=== PATIENT | male | born 2000 | race Caucasian/White ===

== ENCOUNTER 2019-06-13 12:25 | Emergency (ER) | payer BC, OTHER ==
[~2019-06-13] VITALS: Ht 182.9 cm; Wt 72.6 kg
--- NOTE | 2019-06-13 12:44 | ED Pediatric Illness ---
HPI-Pediatric Illness General Chief Complaint: Abdominal/GI Problems Stated Complaint: BLOOD IN STOOL/DRANK ALCOHOL AND ON STEROIDS Source: patient Exam Limitations: no limitations History of Present Illness Date Seen by Provider: Jun 13, 2019 Time Seen by Provider: 12:41 Initial Comments To ER with reports of bright red blood in his stool this morning. This was soft non-painful bowel movement. He's never had this before. He only had the one episode. Denies abdominal pain nausea or vomiting. He is concerned because he uses testosterone injections and "dianabol" oral steroid in an effort to "double". He purchases these online from a warehouse in [employer]. He is also concerned because he drinks alcohol several times a week but not daily, smokes marijuana daily and smokes a joule cigarette daily. He is worried about the effects of the substances on his liver. 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. Timing/Duration: 4-6 hours Severity: moderate Presenting Symptoms: No fever, No runny nose, No trouble breathing, No persistent cough, No sore throat, No painful swallowing; bloody stools (times one today); No diarrhea, No abdominal pain, No vomiting, No skin rash Allergies and Home Medications Patient Home Medication List Home Medication List Reviewed: Yes Review of Systems Review of Systems Constitutional: see HPI EENTM: see HPI Respiratory: no symptoms reported Cardiovascular: no symptoms reported Gastrointestinal: No abdominal pain, No melena, No nausea, No vomiting Genitourinary: no symptoms reported Musculoskeletal: no symptoms reported Skin: no symptoms reported Psychiatric/Neurological: No Symptoms Reported Endocrine: No Symptoms Reported Hematologic/Lymphatic: No Symptoms Reported PMH-Pediatrics Recent Foreign Travel: No Contact w/other who traveled: No Physical Exam-Pediatric Physical Exam Vital Signs - First Documented 06/13/19 12:34 Temp 97.8 Pulse 96 Resp 18 B/P (MAP) 156/102 Capillary Refill : Height, Weight, BMI Height: '" Weight: lbs. oz. kg; BMI Method: General Appearance: no acute distress, see HPI, active HENT: head inspection normal, fontanelle closed/normal, PERRL, TMs normal Neck: non-tender, full range of motion; No lymphadenopathy (R), No lymphadenopathy (L) Respiratory: lungs clear, normal breath sounds, no respiratory distress, no accessory muscle use Cardiovascular: regular rate, rhythm, no murmur Gastrointestinal: normal bowel sounds, non tender, soft; No hepatomegaly, No spleenomegaly Extremities: normal range of motion, non-tender Neurologic/Psychiatric: alert, normal mood/affect, oriented x 3 Skin: normal color, warm/dry Progress/Results/Core Measures Results/Orders Lab Results Laboratory Tests Test 06/13/19 12:31 Range/Units White Blood Count 4.1 L 4.3-11.0 10^3/uL Red Blood Count 5.29 4.35-5.85 10^6/uL Hemoglobin 15.8 13.3-17.7 G/DL Hematocrit 47 40-54 % Mean Corpuscular Volume 89 80-99 FL Mean Corpuscular Hemoglobin 30 25-34 PG Mean Corpuscular Hemoglobin Concent 33 32-36 G/DL Red Cell Distribution Width 13.1 10.0-14.5 % Platelet Count 330 130-400 10^3/uL Mean Platelet Volume 8.7 7.4-10.4 FL Neutrophils (%) (Auto) 42 42-75 % Lymphocytes (%) (Auto) 41 12-44 % Monocytes (%) (Auto) 9 0-12 % Eosinophils (%) (Auto) 6 0-10 % Basophils (%) (Auto) 2 0-10 % Neutrophils # (Auto) 1.7 L 1.8-7.8 X 10^3 Lymphocytes # (Auto) 1.7 1.0-4.0 X 10^3 Monocytes # (Auto) 0.4 0.0-1.0 X 10^3 Eosinophils # (Auto) 0.2 0.0-0.3 10^3/uL Basophils # (Auto) 0.1 0.0-0.1 10^3/uL Prothrombin Time 12.9 12.2-14.7 SEC INR Comment 0.9 0.8-1.4 Sodium Level 143 135-145 MMOL/L Potassium Level 3.7 3.6-5.0 MMOL/L Chloride Level 106 98-107 MMOL/L Carbon Dioxide Level 24 21-32 MMOL/L Anion Gap 13 5-14 MMOL/L Blood Urea Nitrogen 9 7-18 MG/DL Creatinine 1.02 0.60-1.30 MG/DL Estimat Glomerular Filtration Rate > 60 BUN/Creatinine Ratio 9 Glucose Level 85 70-105 MG/DL Calcium Level 9.5 8.5-10.1 MG/DL Corrected Calcium 8.5-10.1 MG/DL Total Bilirubin 0.9 0.1-1.0 MG/DL Aspartate Amino Transf (AST/SGOT) 40 H 5-34 U/L Alanine Aminotransferase (ALT/SGPT) 26 0-55 U/L Alkaline Phosphatase 75 40-136 U/L Total Protein 7.8 6.4-8.2 GM/DL Albumin 4.7 H 3.2-4.5 GM/DL My Orders Orders - SAMIA BLEDSOE APRN Cbc With Automated Diff (06/13/19 12:40) Comprehensive Metabolic Panel (06/13/19 12:40) Protime With Inr (06/13/19 12:40) Ed Iv/Invasive Line Start (06/13/19 12:40) Vital Signs/I&O 06/13/19 12:34 Temp 97.8 Pulse 96 Resp 18 B/P (MAP) 156/102 Departure Impression Primary Impression: Elevated LFTs Additional Impression: History of anabolic steroid use Disposition: 01 HOME, SELF-CARE Condition: Stable Departure-Patient Inst. Decision time for Depature: 13:06 Referrals: FRANTZ MONK BRETT D DO NO,LOCAL PHYSICIAN (PCP) Primary Care Physician Patient Instructions: NO INSTRUCTIONS GIVEN Add. Discharge Instructions: 1. If you have recurrent bloody stools call one of the surgeons listed to make an appointment to be seen to schedule further evaluation which may include colonoscopy. If you develop fevers abdominal pain or other concerns return to the emergency room. All discharge instructions reviewed with patient and/or family. Voiced understanding. SAMIA BLEDSOE APRN Jun 13, 2019 12:44
[2019-06-13 12:49] LABS: BASOPHILS # (AUTO) 0.1 10^3/uL (0.0-0.1); BASOPHILS % (AUTO) 2 % (0-10); EOSINOPHILS # (AUTO) 0.2 10^3/uL (0.0-0.3); EOSINOPHILS % (AUTO) 6 % (0-10); HEMATOCRIT 47 % (40-54); HEMOGLOBIN 15.8 G/DL (13.3-17.7); LYMPHOCYTES # (AUTO) 1.7 X 10^3 (1.0-4.0); LYMPHOCYTES % (AUTO) 41 % (12-44); MEAN CORPUSCULAR HEMOGLOBIN 30 PG (25-34); MEAN CORPUSCULAR HGB CONC 33 G/DL (32-36); MEAN CORPUSCULAR VOLUME 89 FL (80-99); MEAN PLATELET VOLUME 8.7 FL (7.4-10.4); MONOCYTES # (AUTO) 0.4 X 10^3 (0.0-1.0); MONOCYTES % (AUTO) 9 % (0-12); NEUTROPHILS # (AUTO) 1.7 X 10^3 (1.8-7.8); NEUTROPHILS % (AUTO) 42 % (42-75); PLATELET COUNT 330 10^3/uL (130-400); RED CELL DISTRIBUTION WIDTH 13.1 % (10.0-14.5); WHITE BLOOD COUNT 4.1 10^3/uL (4.3-11.0)
[2019-06-13 12:57] LABS: INR 0.9 (0.8-1.4); PROTHROMBIN TIME PATIENT 12.9 SEC (12.2-14.7)
[2019-06-13 13:03] LABS: ALANINE AMINOTRANSFERASE 26 U/L (0-55); ALBUMIN 4.7 GM/DL (3.2-4.5); ALKALINE PHOSPHATASE 75 U/L (40-136); BILIRUBIN,TOTAL 0.9 MG/DL (0.1-1.0); BUN/CREATININE RATIO 9; CALCIUM 9.5 MG/DL (8.5-10.1); CARBON DIOXIDE 24 MMOL/L (21-32); CHLORIDE 106 MMOL/L (98-107); CREATININE SERUM 1.02 MG/DL (0.60-1.30); GFR ESTIMATED > 60; GLUCOSE 85 MG/DL (70-105); POTASSIUM 3.7 MMOL/L (3.6-5.0); SODIUM 143 MMOL/L (135-145); TOTAL PROTEIN 7.8 GM/DL (6.4-8.2)
== END 2019-06-13 13:20 | disposition home or self-care (01) ==
LOC: ER 12:27
DX: R94.5 Abnormal results of liver function studies (principal); F12.10 Cannabis abuse, uncomplicated; F17.210 Nicotine dependence, cigarettes, uncomplicated; Z79.52 Long term (current) use of systemic steroids
CPT/HCPCS: 36415; 80053; 85025; 85610